=== PATIENT | female | born 1995 | race Hispanic/Latino ===

== ENCOUNTER 2019-06-02 06:17 | Emergency (ER) | payer SELFPAY ==
[2019-06-02] MEDS ORDERED: NA CHLORIDE 0.9% 1,000 ML ONE (06:49)
[2019-06-02 07:15] LABS: Basophils % 0.5 % (0-1.3); Hematocrit 37.4 % (36.0-45.0); Lymphocytes % 16.2 % (15.3-44.8); MPV 9.5 fL (7.6-11.3); RBC Red Blood Cell Count 4.58 M/uL (3.86-4.86)
[2019-06-02 07:54] LABS: BUN Blood Urea Nitrogen 8 mg/dL (7-18); Bicarbonate 26 mmol/L (21-32); Glucose Level 86 mg/dL (74-106); HCG, Quantitative 59973 mIU/mL (1-3); Potassium 3.5 mmol/L (3.5-5.1); Sodium Level 139 mmol/L (136-145)
[2019-06-02 08:06] LABS: Urine Bacteria 20-50 /HPF (<20)
[2019-06-02 08:07] LABS: Urine Culture Reflex Order NOT NEEDED
[2019-06-02] MEDS ORDERED: CEFTRIAXONE/SWI 1gm 1 GM/10 ML SYR ONE (08:23)
--- NOTE | 2019-06-02 09:43 | ER ---
Nurse's Notes [facility] Name: Jacqueline Stephens Age: 24 yrs Sex: Female : 1995 Arrival Date: 06/02/2019 Time: 06:19 Bed 14 Private MD: Diagnosis: Threatened ;Urinary tract infection, site not specified Presentation: 06/02 06:20 Presenting complaint: Patient states: "I've been having red-brown in color vaginal cc3 bleeding since 2 days with left lower abdominal pain and suprapubic pain". Transition of care: patient was not received from another setting of care. Onset of symptoms was May 31, 2019. Risk Assessment: Do you want to hurt yourself or someone else? Patient reports no desire to harm self or others. Initial Sepsis Screen: Does the patient meet any 2 criteria? No. Patient's initial sepsis screen is negative. Does the patient have a suspected source of infection? No. Patient's initial sepsis screen is negative. Care prior to arrival: None. 06:20 Method Of Arrival: Ambulatory cc3 06:20 Acuity: [place]OR[place] 3 cc3 Triage Assessment: 06:20 General: Appears in no apparent distress. comfortable, Behavior is calm, cooperative, cc3 appropriate for age. Pain: Complains of pain in left lower quadrant, suprapubic Pain currently is 2 out of 10 on a pain scale. Quality of pain is described as aching, Pain began 2-3 days ago. EENT: No signs and/or symptoms were reported regarding the EENT system. Neuro: Level of Consciousness is awake, alert, obeys commands, Oriented to person, place, time, situation, Appropriate for age. Cardiovascular: Denies chest pain, Heart tones S1 S2 present Capillary refill < 3 seconds in bilateral fingers Patient's skin is warm and dry. Respiratory: Airway is patent Respiratory effort is even, unlabored, Respiratory pattern is regular, symmetrical, Breath sounds are clear bilaterally. GI: Abdomen is round non-distended, Bowel sounds present X 4 quads. Abd is soft X 4 quads Abdomen is tender to palpation in suprapubic. : No signs and/or symptoms were reported regarding the genitourinary system. Derm: Skin is intact, is healthy with good turgor, Skin is pink, warm \\T\\ dry. normal. Musculoskeletal: Circulation, motion, and sensation intact. Range of motion: intact in all extremities. 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 - Social history:: Smoking status: Patient/guardian denies using tobacco, never smoked. - Ebola Screening: : No symptoms or risks identified at this time. - Family history:: not pertinent. Screenin:20 Abuse screen: Denies threats or abuse. Denies injuries from another. Nutritional cc3 screening: No deficits noted. Tuberculosis screening: No symptoms or risk factors identified. Fall Risk Ambulatory Aid- None/Bed Rest/Nurse Assist (0 pts). Gait- Normal/Bed Rest/Wheelchair (0 pts) Mental Status- Oriented to own ability (0 pts). Assessment: 07:05 General: Appears in no apparent distress. comfortable, Behavior is calm, cooperative. rb1 Pain: Denies pain. Neuro: Level of Consciousness is awake, alert, obeys commands, Oriented to person, place, time, situation. Cardiovascular: Capillary refill < 3 seconds is brisk in bilateral fingers. 07:05 Respiratory: Airway is patent Respiratory effort is even, unlabored, Respiratory rb1 pattern is regular, symmetrical. GI: No signs and/or symptoms were reported involving the gastrointestinal system. : Parent/caregiver report the patient having vaginal bleeding that is light flow discharge is red, bleeding has decreased per pt. report. Derm: Skin is pink, warm \\T\\ dry. 08:00 Reassessment: Patient appears in no apparent distress at this time. No changes from rb1 previously documented assessment. 09:00 Reassessment: Patient appears in no apparent distress at this time. Patient and/or rb1 family updated on plan of care and expected duration. Pain level reassessed. Patient is alert, oriented x 3, equal unlabored respirations, skin warm/dry/pink. 09:58 Reassessment: Patient appears in no apparent distress at this time. No changes from rb1 previously documented assessment. Vital Signs: 06:20 BP 136 / 81; Pulse 98; Resp 19 S; Temp 98.5(O); Pulse Ox 100% on R/A; Weight 65.77 kg cc3 (R); Height 5 ft. 4 in. (162.56 cm); Pain 2/10; 07:20 BP 120 / 67; Pulse 77; Resp 16; Pulse Ox 100% on R/A; Pain 0/10; rb1 08:20 BP 97 / 53; Pulse 57; Resp 17; Pulse Ox 100% on R/A; rb1 08:58 BP 121 / 74; Pulse 80; Resp 17; Temp 97.7(O); Pulse Ox 99% on R/A; mh5 09:58 BP 113 / 66; Pulse 69; Resp 15; Pulse Ox 99% on R/A; Pain 2/10; rb1 06:20 Body Mass Index 24.89 (65.77 kg, 162.56 cm) cc3 Vitals: 07:05 Heart Tones Too early to hear FHT with doppler. rb1 ED Course: 06:19 Patient arrived in ED. ds1 06:20 Arm band placed on right wrist. Patient notified of wait time. cc3 06:20 Patient has correct armband on for positive identification. Placed in gown. Bed in low cc3 position. Call light in reach. Side rails up X 1. Pulse ox on. NIBP on. 06:27 Hal Liu MD is Attending Physician. evan 06:42 Triage completed. cc3 06:56 Initial lab(s) drawn, by me, sent to lab. Inserted saline lock: 20 gauge in right lt1 antecubital area, using aseptic technique. 07:00 Report given to RICARDO Ballesteros. cc3 07:01 Lesli Webster, RICARDO is Primary Nurse. rb1 07:20 Danny Cuello NP is PHCP. pm1 08:22 Patient taken to ultrasound. via wheelchair. lc3 08:52 Ultrasound completed. Patient tolerated well. Patient moved back from ultrasound. lc3 09:19 US Transvaginal Ob In Process Unspecified. EDMS 10:00 No provider procedures requiring assistance completed. IV discontinued, intact, rb1 bleeding controlled, No redness/swelling at site. Pressure dressing applied. Administered Medications: 06:53 Drug: NS 0.9% 1000 ml Route: IV; Rate: 1 bolus; Site: right antecubital; cc3 08:26 Follow up: Response: No adverse reaction rb1 08:28 Drug: Rocephin 1 grams Route: IV; Rate: calculated rate; Site: right antecubital; iw 09:00 Follow up: Response: No adverse reaction; IV Status: Completed infusion rb1 Point of Care Testing: Urine : 07:58 hCG Reading: Positive; rb1 Output: 07:16 Urine: 1ml (Voided); Total: 1ml. rb1 Outcome: 09:43 Discharge ordered by MD. pm1 10:00 Discharged to home ambulatory. rb1 10:00 Condition: stable 10:00 Discharge instructions given to patient, Instructed on discharge instructions, follow up and referral plans. medication usage, Demonstrated understanding of instructions, follow-up care, medications, Prescriptions given X 3. 10:01 Patient left the ED. rb1 Addendum: 06/05/2019 07:50 Addendum: Culture Results: Positive urine culture. No further action required. Bacteria i w sensitive to prescribed antibiotic. Signatures: Dispatcher [employer] EDMS Hal Liu MD MD cha Sanford, Demi ds1 Helen Epstein, RN RN iw Edmund Cruz Rebecca, RN RN rb1 Danny Cuello, ROSITA BLASTING COAL MINER pm1 Luciana Silva [facility] Keyona Pichardo cc3 Brooke Nevarez 1
--- NOTE | 2019-06-02 09:44 | EDPHYS ---
Physician Documentation [facility] Name: Jacqueline Stephens Age: 24 yrs Sex: Female : 1995 Arrival Date: 06/02/2019 Time: 06:19 Bed 14 Private MD: ED Physician Hal Liu HPI: 06/02 06:44 This 24 yrs old Female presents to ER via Ambulatory with complaints of evan Vaginal Bleeding, + Preg <12wks. 06:44 The patient presents to the emergency department with abdominal pain, of the , vaginal evan bleeding. The estimated gestational age is 6 weeks. course: care: none. The patient has not experienced similar symptoms in the past. 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 - Social history:: Smoking status: Patient/guardian denies using tobacco, never smoked. - Ebola Screening: : No symptoms or risks identified at this time. - Family history:: not pertinent. ROS: 06:44 Constitutional: Negative for fever, chills, and weight loss, Eyes: Negative for injury, evan pain, redness, and discharge, ENT: Negative for injury, pain, and discharge, Neck: Negative for injury, pain, and swelling, Cardiovascular: Negative for chest pain, palpitations, and edema, Respiratory: Negative for shortness of breath, cough, wheezing, and pleuritic chest pain, Abdomen/GI: Negative for abdominal pain, nausea, vomiting, diarrhea, and constipation, Back: Negative for injury and pain, MS/Extremity: Negative for injury and deformity, Skin: Negative for injury, rash, and discoloration, Neuro: Negative for headache, weakness, numbness, tingling, and seizure. 06:44 : Positive for vaginal bleeding. Exam: 06:44 Constitutional: This is a well developed, well nourished patient who is awake, alert, evan and in no acute distress. Head/Face: Normocephalic, atraumatic. Eyes: Pupils equal round and reactive to light, extra-ocular motions intact. Lids and lashes normal. Conjunctiva and sclera are non-icteric and not injected. Cornea within normal limits. Periorbital areas with no swelling, redness, or edema. ENT: Nares patent. No nasal discharge, no septal abnormalities noted. Tympanic membranes are normal and external auditory canals are clear. Oropharynx with no redness, swelling, or masses, exudates, or evidence of obstruction, uvula midline. Mucous membranes moist. Neck: Trachea midline, no thyromegaly or masses palpated, and no cervical lymphadenopathy. Supple, full range of motion without nuchal rigidity, or vertebral point tenderness. No Meningismus. Chest/axilla: Normal chest wall appearance and motion. Nontender with no deformity. No lesions are appreciated. Cardiovascular: Regular rate and rhythm with a normal S1 and S2. No gallops, murmurs, or rubs. Normal PMI, no JVD. No pulse deficits. Respiratory: Lungs have equal breath sounds bilaterally, clear to auscultation and percussion. No rales, rhonchi or wheezes noted. No increased work of breathing, no retractions or nasal flaring. Abdomen/GI: Soft, non-tender, with normal bowel sounds. No distension or tympany. No guarding or rebound. No evidence of tenderness throughout. Back: No spinal tenderness. No costovertebral tenderness. Full range of motion. Skin: Warm, dry with normal turgor. Normal color with no rashes, no lesions, and no evidence of cellulitis. MS/ Extremity: Pulses equal, no cyanosis. Neurovascular intact. Full, normal range of motion. Neuro: Awake and alert, GCS 15, oriented to person, place, time, and situation. Cranial nerves II-XII grossly intact. Motor strength 5/5 in all extremities. Sensory grossly intact. Cerebellar exam normal. Normal gait. Psych: Awake, alert, with orientation to person, place and time. Behavior, mood, and affect are within normal limits. Vital Signs: 06:20 BP 136 / 81; Pulse 98; Resp 19 S; Temp 98.5(O); Pulse Ox 100% on R/A; Weight 65.77 kg cc3 (R); Height 5 ft. 4 in. (162.56 cm); Pain 2/10; 07:20 BP 120 / 67; Pulse 77; Resp 16; Pulse Ox 100% on R/A; Pain 0/10; rb1 08:20 BP 97 / 53; Pulse 57; Resp 17; Pulse Ox 100% on R/A; rb1 08:58 BP 121 / 74; Pulse 80; Resp 17; Temp 97.7(O); Pulse Ox 99% on R/A; mh5 09:58 BP 113 / 66; Pulse 69; Resp 15; Pulse Ox 99% on R/A; Pain 2/10; rb1 06:20 Body Mass Index 24.89 (65.77 kg, 162.56 cm) cc3 MDM: 06:27 Patient medically screened. [facility] 09:42 Data reviewed: vital signs. Data interpreted: Pulse oximetry: on room air is 99 %. pm1 Interpretation: normal. Counseling: I had a detailed discussion with the patient and/or guardian regarding: the historical points, exam findings, and any diagnostic results supporting the discharge/admit diagnosis, lab results, radiology results, the need for outpatient follow up, to return to the emergency department if symptoms worsen or persist or if there are any questions or concerns that arise at home. 06/02 06:30 Order name: Quantitative Hcg; Complete Time: 07:58 [facility] 06/02 06:30 Order name: Abo/rh Typing; Complete Time: 08:17 [facility] 06/02 06:30 Order name: Basic Metabolic Panel; Complete Time: 07:58 [facility] 06/02 06:30 Order name: CBC with Diff; Complete Time: 07:33 [facility] 06/02 06:30 Order name: Urine Culture [facility] 06/02 07:34 Order name: Urine Microscopic Only; Complete Time: 08:17 pm1 06/02 06:30 Order name: Urine Test (obtain specimen); Complete Time: 07:35 [facility] 06/02 06:30 Order name: IV Saline Lock; Complete Time: 06:57 [facility] 06/02 06:30 Order name: Labs collected and sent; Complete Time: 06:57 [facility] 06/02 06:30 Order name: NPO; Complete Time: 06:53 [facility] 06/02 06:30 Order name: Urine Dipstick-Ancillary (obtain specimen); Complete Time: 07:35 [facility] 06/02 06:30 Order name: US Transvaginal Ob evan Administered Medications: 06:53 Drug: NS 0.9% 1000 ml Route: IV; Rate: 1 bolus; Site: right antecubital; cc3 08:26 Follow up: Response: No adverse reaction rb1 08:28 Drug: Rocephin 1 grams Route: IV; Rate: calculated rate; Site: right antecubital; iw 09:00 Follow up: Response: No adverse reaction; IV Status: Completed infusion rb1 Point of Care Testing: Urine : 07:58 hCG Reading: Positive; rb1 Disposition: 06/03 07:53 Co-signature as Attending Physician, Hal Liu MD I agree with the assessment and evan plan of care. Disposition: 06/02/19 09:43 Discharged to Home. Impression: Threatened , Urinary tract infection, site not specified. - Condition is Stable. - Discharge Instructions: Threatened Miscarriage, Vaginal Bleeding During , First Trimester, First Trimester of , [id number], First Trimester of , Threatened Miscarriage, [id number], Pelvic Rest, and Urinary Tract Infection. - Prescriptions for Vitamin 27- 0.8 mg Oral Tablet - take 1 tablet by ORAL route once daily; 30 tablet. Macrobid 100 mg Oral Capsule - take 1 capsule by ORAL route every 12 hours for 10 days; 20 capsule. promethazine 25 mg Oral Tablet - take 1 tablet by ORAL route every 6 hours As needed; 20 tablet. - Work release form, Medication Reconciliation Form, Thank You Letter, Antibiotic Education, Prescription Opioid Use form. - Follow up: Private Physician; When: 2 - 3 days; Reason: Recheck today's complaints, Continuance of care, Re-evaluation by your physician. - Problem is new. - Symptoms have improved. Signatures: Dispatcher [employer] Hal Epperson MD MD cha Williams, Irene, RN RN iw Lesli Webster RN RN rb1 Danny Cuello, ANIMAL GENETICIST ANIMAL GENETICIST pm1 Keyona Pichardo cc3 Corrections: (The following items were deleted from the chart) 06/02 10:01 09:43 06/02/2019 09:43 Discharged to Home. Impression: Threatened ; Urinary rb1 tract infection, site not specified. Condition is Stable. Discharge Instructions: Threatened Miscarriage, Vaginal Bleeding During , First Trimester, First Trimester of , [id number], First Trimester of , Threatened Miscarriage, [id number], Pelvic Rest. Prescriptions for Vitamin 27-0.8 mg Oral Tablet - take 1 tablet by ORAL route once daily; 30 tablet. and Forms are Medication Reconciliation Form, Thank You Letter, Antibiotic Education, Prescription Opioid Use. Follow up: Private Physician; When: 2 - 3 days; Reason: Recheck today's complaints, Continuance of care, Re-evaluation by your physician. Problem is new. Symptoms have improved. pm1
[2019-06-02 10:14] VITALS: TEMP 97.7; O2SAT 99
[2019-06-02 10:15] VITALS: BP 113/66
--- NOTE | 2019-06-02 12:20 | RAD REPORT ---
EXAM DESCRIPTION: US - Transvaginal OB - 06/02/2019 9:18 am CLINICAL HISTORY: ABD CRAMPING, COMPARISON: No comparisons FINDINGS: A single gestational sac is seen within the uterus. The shape of the sac is within normal limits for gestational age. Within the sac is a single pole with crown-rump length of 7 mm, cor relating to estimated gestational age of 6 weeks 5 days. Estimated date of delivery is 01/21/2020. Heart rate is 124 BPM. 13 x 6 mm and 20 x 9 mm inferiorly located subchorionic bleeds. The placenta is not yet developed due to early gestational age. The maternal adnexa and ovaries are within normal limits. Normal Doppler blood flow was demonstrated to both ovaries. IMPRESSION: Single live early intrauterine gestation with estimated gestational age of 6 weeks 5 day s, GUDELIA 01/21/2020. Several small inferiorly located subchorionic bleeds.
== END 2019-06-02 10:01 | disposition home or self-care (01) ==
LOC: ER 06:17
DX: O20.0 Threatened abortion (principal); Z3A.01 Less than 8 weeks gestation of pregnancy; O23.41 Unspecified infection of urinary tract in pregnancy, first trimester
CPT/HCPCS: 36415; 76817; 80048; 81015; 84702; 85025; 86900; 86901; 87077; 87086; 87088; 87186; 96365; 99285; J0696; J7030